=== PATIENT | male | born 1965 | race Caucasian/White ===

== ENCOUNTER 2019-03-30 16:19 | Emergency (ER) | payer OTHER, SELFPAY ==
[2019-03-30 16:42] LABS: #Basophils 0.1 thou/uL (0.0-0.2); #Eosinphils 0.2 thou/uL (0.0-0.7); #Lymphocytes 3.4 thou/uL (1.20-3.40); #Monocytes 1.3 thou/uL (0.11-0.59); #Neutrophils 5.8 thou/uL (1.40-6.50); %Basophils 0.5 % (0.0-1.0); %Eosinophils 2.1 % (0.0-10.0); %Lymphocytes 31.6 % (21.0-51.0); %Monocytes 11.9 % (0.0-10.0); %Neutrophils 53.9 % (42.0-75.0); Hemoglobin 17.4 g/dL (14.0-18.0); Mean Corpuscular HGB CONC 34.2 g/dL (32.0-36.0); Mean Corpuscular Hemoglobin 33.5 pg (27.0-31.0); Mean Corpuscular Volume 97.9 fL (78.0-98.0); Mean Platelet Volume 8.5 fL (7.4-10.4); Platelet Count 251 thou/uL (130-400); RBC Distribution Width 11.2 % (11.5-14.5); Red Blood Cell (RBC) Count 5.19 mill/uL (4.70-6.10); White Blood Cell (WBC) Count 10.7 thou/uL (4.8-10.8)
[2019-03-30 17:00] LABS: ALT (SGPT) 33 U/L (8-55); AST (SGOT) 22 U/L (5-34); Albumin 4.4 g/dL (3.5-5.0); Alkaline Phosphatase 122 U/L (40-110); Anion Gap 13 mmol/L (10-20); BUN (Urea Nitrogen) 14 mg/dL (8.4-25.7); Bilirubin, Total 0.5 mg/dL (0.2-1.2); Calc. Creatinine Clearance 0 mL/min (70-130); Calcium 10.1 mg/dL (7.8-10.44); Carbon Dioxide 27 mmol/L (22-29); Chloride 102 mmol/L (98-107); Estimated GFR-MDRD 84; Globulin 3.9 g/dL (2.4-3.5); Glucose 83 mg/dL (70-105); Potassium 3.9 mmol/L (3.5-5.1); Protein, Total 8.3 g/dL (6.0-8.3); Sodium 138 mmol/L (136-145)
--- NOTE | 2019-03-30 19:39 | CT ---
CT ABDOMEN AND PELVIS WITH IV CONTRAST: History: Epigastric abdominal pain which started three days ago and is now moving inferiorly. Comparison: None. FINDINGS: The lung bases are clear. The portal vein is patent. The liver, spleen, pancreas, and right adrenal gland, demonstrate a normal CT appearance. There is a subcentimeter too small to characterize hypodense lesion seen in the right kidney. A 2 mm nonobstructing inferior pole left renal calculus is seen. There is a small nodule involving th e left adrenal gland measuring 1.5 cm which cannot be further characterized on this post contrast CT exam. Vascular calcifications are seen in the abdominal aorta and involving the iliac arteries. A retro-aor tic left renal vein is identified. Urinary bladder has a normal CT appearance. Loops of small bowel are normal in caliber. A retro-cecal appendix is visualized and normal in calibe r. IMPRESSION: 1. Small left adrenal nodule which cannot be further characterized on this post enhanced exam. Follow up CT scan abdomen without IV contrast following adrenal mass protocol is recommended. 2. Subcentimeter too small to characterize hypodense lesion inferior pole right kidney. 3. Tiny nonobstructing inferior pole left renal calculus. 4. No CT evidence of appendicitis. No acute findings are seen in the abdomen or pelvis. POS: [facility]
== END 2019-03-30 19:54 | disposition home or self-care (01) ==
LOC: ERS 16:19
DX: E78.41 Elevated Lipoprotein(a) (principal); R10.13 Epigastric pain; F17.210 Nicotine dependence, cigarettes, uncomplicated; J44.9 Chronic obstructive pulmonary disease, unspecified; I10 Essential (primary) hypertension
CPT/HCPCS: 36415; 74177; 80053; 83690; 84484; 85025; 93005

== ENCOUNTER 2019-12-31 15:09 | Outpatient (CLI) | payer OTHER ==
--- NOTE | 2019-12-31 15:44 | RAD ---
EXAM: 2 views of the right knee HISTORY: Right knee pain COMPARISON: None FINDINGS: No knee effusion is seen. There is no evidence of acute fracture or dislocation. Moderate t o severe tricompartmental joint space narrowing and osteophyte formation is seen consistent with osteoarthritis. Sclerotic regions in the distal femur and proximal tibia may represent bone infarctio ns. IMPRESSION: Moderate to severe right knee osteoarthritis
--- NOTE | 2019-12-31 15:47 | RAD ---
EXAM: 3 views of the lumbosacral spine HISTORY: Low back pain COMPARISON: 11/25/2009 FINDINGS: 3 views of the lumbosacral spine shows normal height and alignment of the vertebral bodies and intervertebral discs without fracture or subluxation. Mild to moderate degenerative changes are seen in the lower lumbar spine, greatest at L4/5. Osteophytes are seen anteriorly and posterior facet arthrosis is seen in the lower lumbosacral spine. The sacroiliac joints are unremarkable. Calcifications are seen in the aorta. IMPRESSION: Degenerative changes of the lumbar spine as above
== END 2019-12-31 15:10 | disposition home or self-care (01) ==
LOC: RAD 15:09
PROVIDERS: ATTEND Internal Medicine
DX: Z02.71 Encounter for disability determination (principal); M47.816 Spondylosis without myelopathy or radiculopathy, lumbar region; M17.11 Unilateral primary osteoarthritis, right knee
CPT/HCPCS: 72100